=== PATIENT | female | born 2000 | race Caucasian/White ===

== ENCOUNTER 2022-02-24 23:04 | Outpatient (CLI) | payer SELFPAY | END 2022-02-24 23:05 | disposition EMS.NT | LOC: EMS 23:04 | DX: Z04.1 Encounter for examination and observation following transport accident (principal); Z72.89 Other problems related to lifestyle ==

== ENCOUNTER 2023-03-04 12:07 | Emergency (ER) | payer OTHER ==
[2023-03-04 12:31] VITALS: O2SAT 100
[2023-03-04 12:49] LABS: BASOPHILS # (AUTO) 0.1 10^3/uL (0.0-0.1); BASOPHILS % (AUTO) 1.2 %; EOSINOPHILS # (AUTO) 0.2 10^3/uL (0.0-0.7); EOSINOPHILS % (AUTO) 1.9 %; HCT - HEMATOCRIT 47.2 % (37.0-47.0); HGB - HEMOGLOBIN 14.4 g/dL (12.0-16.0); LYMPHOCYTES # (AUTO) 2.2 10^3/uL (1.5-3.5); MEAN CORPUSCULAR HEMOGLOBIN 24.8 pg (27.0-31.0); MEAN CORPUSCULAR HGB CONC 30.5 g/dL (32.0-36.0); MEAN CORPUSCULAR VOLUME 81.2 fL (81.0-99.0); MEAN PLATELET VOLUME 9.5 fL (7.9-10.8); MONOCYTES # (AUTO) 0.6 10^3/uL (0.0-1.0); MONOCYTES % (AUTO) 6.2 %; NEUTROPHILS # (AUTO) 5.8 10^3/uL (1.5-6.6); NEUTROPHILS % (AUTO) 65.4 %; PLT - PLATELET COUNT 451 10^3/uL (130-450); RED BLOOD COUNT 5.81 10^6/uL (4.20-5.40); RED CELL DISTRIBUTION WIDTH 17.9 % (12.0-15.0); WHITE BLOOD COUNT 8.8 x10^3/uL (4.8-10.8)
[2023-03-04 13:08] LABS: ALBUMIN 4.9 g/dL (3.2-5.5); ALBUMIN/GLOBULIN RATIO 1.6 (1.0-2.2); BILIRUBIN,TOTAL 0.8 mg/dL (0.2-1.0); CALCIUM 9.9 mg/dL (8.5-10.3); CREATININE 0.9 mg/dL (0.6-1.3); POTASSIUM 4.1 mmol/L (3.5-4.5)
[2023-03-04 13:58] LABS: BILIRUBIN,URINE NEGATIVE (NEGATIVE); CLARITY,URINE CLEAR (CLEAR); GLUCOSE, URINE (UA) NEGATIVE (NEGATIVE); HCG UR QUAL NEGATIVE; KETONES,URINE (UA) NEGATIVE (NEGATIVE); LEUKOCYTE ESTERASE, URINE LARGE (NEGATIVE); NITRITE,URINE NEGATIVE (NEGATIVE); OCCULT BLOOD,URINE NEGATIVE (NEGATIVE); PROTEIN,URINE NEGATIVE (NEGATIVE); UROBILINOGEN,URINE 0.2 (NORMAL) E.U./dL (NORMAL)
[2023-03-04 14:01] LABS: BACTERIA,URINE Few /HPF (None Seen); MUCUS,URINE Moderate Strands; RBC,URINE 0-5 /HPF (0-5); SQUAMOUS EPITHELIAL CELL,UR MANY Squamous (<= Few)
[2023-03-04] MEDS ORDERED: ONDANSETRON 4 MG/2 ML VIAL IVP STA (14:59)
[2023-03-04] MEDS ORDERED: SUCRALFATE 1 GM/10 ML UDC PO STA (15:06)
[2023-03-04] MEDS ORDERED: PANTOPRAZOLE 40 MG VIAL IVP STA (15:06)
[2023-03-04] MEDS ORDERED: LIDOCAINE VISCOUS 2% 15 ML ORAL SYRINGE MM STA (15:07)
--- NOTE | 2023-03-04 15:09 | ED Physician Documentation ---
History of Present Illness - Stated complaint Stated Complaint: CHEST/ABD PX - Chief complaint Chief Complaint: Abd Pain - Additonal information Additional information: Single episode 22-year-old female presents to the emergency department for evaluation of epigastric abdominal pain with radiation towards the chest. Symptoms began this morning in the gym when she was working out. She states she has had similar symptoms in the past that she has always attributed to acid reflux. She takes no reflux medications. She does endorse tobacco, spicy food and caffeine intake. Denies melena or hematochezia. No pertinent past surgical history. Takes no prescribed medications otherwise. Review of Systems Constitutional: denies: Fever Cardiac: reports: Reviewed and negative Respiratory: reports: Reviewed and negative GI: reports: Abdominal Pain, Nausea. denies: Vomiting, Hematemesis : reports: Reviewed and negative Skin: reports: Reviewed and negative PD PAST MEDICAL HISTORY - Past Medical History Past Medical History: No - Past Surgical History Past Surgical History: No - Present Medications Home Medications: Ambulatory Orders Medication Instructions Recorded Confirmed Ondansetron Odt [Zofran] 4 mg TL Q6H PRN #10 tablet 03/04/23 Pantoprazole Sodium [Protonix] 40 mg PO DAILY #30 tab 03/04/23 Sucralfate [Carafate] 1 gm PO ACHS #60 tablet 03/04/23 - Allergies Allergies/Adverse Reactions: Allergies Allergy/AdvReac Type Severity Reaction Status Date / Time No Known Drug Allergies Allergy Verified 03/04/23 12:30 - Social History Does the pt smoke?: No Smoking Status: Never smoker PD ED PE NORMAL - General General: Alert and oriented X 3, No acute distress, Well developed/nourished - HEENT HEENT: Atraumatic - Cardiac Cardiac: RRR, No murmur - Respiratory Respiratory: No respiratory distress, Clear bilaterally - Abdomen Abdomen: Normal bowel sounds, Soft, Non tender (Epigastric tenderness with no pain elicited in the right upper quadrant or right lower quadrant. Benign exam overall.) - Back Back: No CVA TTP - Derm Derm: Normal color, Warm and dry, No rash - Extremities Extremities: No deformity - Neuro Neuro: Alert and oriented X 3 Eye Opening: Spontaneous Motor: Obeys Commands Verbal: Oriented GCS Score: 15 Results - Vitals Vitals: Vital Signs - 24 hr 03/04/23 03/04/23 03/04/23 12:27 14:44 16:15 Temperature 37 C Heart Rate 97 73 62 Respiratory 20 20 16 Rate Blood Pressure 131/78 H 129/108 H 113/77 O2 Saturation 100 100 100 Oxygen O2 Source Room air - Labs Labs: Laboratory Tests 03/04/23 03/04/23 03/04/23 12:46 12:46 13:40 WBC 8.8 RBC 5.81 H Hgb 14.4 Hct 47.2 H MCV 81.2 MCH 24.8 L MCHC 30.5 L RDW 17.9 H Plt Count 451 H MPV 9.5 Neut # (Auto) 5.8 Lymph # (Auto) 2.2 [place] # (Auto) 0.6 Eos # (Auto) 0.2 Baso # (Auto) 0.1 Absolute Nucleated RBC 0.00 Nucleated RBC % 0.0 Sodium 140 Potassium 4.1 Chloride 104 Carbon Dioxide 29 Anion Gap 7.0 BUN 10 Creatinine 0.9 Estimated GFR (MDRD) 79 L Glucose 92 Calcium 9.9 Total Bilirubin 0.8 AST 18 ALT 11 Alkaline Phosphatase 61 Total Protein 8.0 Albumin 4.9 Globulin 3.1 Albumin/Globulin Ratio 1.6 Lipase 20 Urine Color YELLOW Urine Clarity CLEAR Urine pH 7.0 Ur Specific [place] 1.010 Urine Protein NEGATIVE Urine Glucose (UA) NEGATIVE Urine Ketones NEGATIVE Urine Occult Blood NEGATIVE Urine Nitrite NEGATIVE Urine Bilirubin NEGATIVE Urine Urobilinogen 0.2 (NORMAL) Ur Leukocyte Esterase LARGE H Urine RBC 0-5 Urine WBC 4-5 Ur Squamous Epith Cells MANY Squamous H Urine Bacteria Few Urine Mucus Moderate Strands Ur Microscopic Review INDICATED Urine Culture Comments NOT INDICATED Urine HCG, Qual NEGATIVE PD Medical Decision Making - ED course Complexity details: reviewed results, re-evaluated patient, d/w patient ED course: 22-year-old female presents emergency department for evaluation of epigastric abdominal pain with some nausea and vomiting. She often has a sensation of burning into her esophagus. On presentation the emergency department she had epigastric pain without guarding or rebound. There was no right upper quadrant or right lower quadrant tenderness elicited. CBC, electrolytes and urinalysis were obtained. Per my interpretation no acute worrisome abnormalities. Clinically I was suspicious for gastritis. I initially administered the patient Protonix, Carafate and lidocaine which markedly improved the symptoms. Following this she was tolerating sips of p.o. Given the lack of abdominal pain and unremarkable labs I am less suspicious for an occult surgical abdomen such as appendicitis and as such have deferred imaging. I discussed with patient that the etiology of her symptoms likely was gastritis we discussed routine diet changes associated with this. If not markedly improve may benefit from an EGD. She will be discharged with prescription for Zofran, Carafate and Protonix. Advised to follow closely with [facility]. The usual emergent return precautions were discussed for worsening symptoms. Departure - Departure Disposition: Home, Self Care Clinical Impression: Gastritis Qualifiers: Gastritis type: unspecified gastritis Chronicity: acute Gastritis bleeding: without bleeding Qualified Code(s): K29.00 - Acute gastritis without bleeding Condition: Stable Record reviewed to determine appropriate education?: Yes Instructions: ED Gastritis Prescriptions: Sucralfate [Carafate] 1 gm PO ACHS #60 tablet Pantoprazole Sodium [Protonix] 40 mg PO DAILY #30 tab Ondansetron Odt [Zofran] 4 mg TL Q6H PRN #10 tablet PRN Reason: Nausea / Vomiting Comments: Scarlet you came to the emergency department for pain in your upper stomach area. Your history and exam is consistent with gastritis which is inflammation of the stomach lining usually due to excess of stomach acid. There are other causes of gastritis and esophagitis such as a bacterial infection of the stomach as well as having the lower esophageal sphincter or muscle be loose. In general you should avoid caffeine, nicotine, alcohol spicy foods and citrus foods until your symptoms resolved. You should eat a very bland diet. [facility]. Take the Protonix every morning when you wake up. At nighttime please take the Carafate before you go to bed. You should avoid eating or drinking 2 hours before going to bed. For nausea I have prescribed Zofran. Gastritis typically takes several weeks to begin to resolve. If you are not having marked improvement over the next several days you do need to see [facility] as they may want to make a referral for you to have an EGD or endoscopy completed of your upper stomach and throat. Return to the ER if you have any black or bloody stools, fevers or worsening symptoms Forms: PCP List
[2023-03-04] MEDS ORDERED: HYDROcod/ACETAM 5/325 MG TABLET PO STA (16:38)
[2023-03-04 16:52] VITALS: BP 124/71
== END 2023-03-04 16:55 | disposition home or self-care (01) ==
LOC: ED 12:07
DX: K29.00 Acute gastritis without bleeding (principal)
CPT/HCPCS: 36415; 80053; 81001; 81025; 83690; 85025; 96374; 96375; 99283; A9270; 81003; 87086